=== PATIENT | male | born 1945 | race Caucasian/White ===

== ENCOUNTER → 2021-12-04 | Outpatient (CLI) | payer MEDICARE, OTHER ==
--- NOTE | 2021-12-05 09:07 | NM ---
EXAMINATION TYPE: NM DatScan Brain SPECT DATE OF EXAM: 12/04/2021 COMPARISON: NONE HISTORY: 75-year-old male R25.1, tremors. TECHNIQUE: 10 drops of Lugol's solution was administered 1 hour prior to injection as a thyroid bloc rhiannon agent. After the administration of 4.69 mCi I-123 Ioflupane DaTscan. Images obtained 3 hours p ost injection. SPECT images of the brain were acquired with axial and coronal reconstructions. FINDINGS: There is increased background uptake. Suggestion of minimal blunting of the posterior left striatal u ptake on axial SPECT images. However, this is not corroborated on IWLD Quant analysis. IMPRESSION: Increased background uptake which can be seen with balanced loss of striatal activity and may indicat e early changes of idiopathic Parkinson's disease or Parkinsonian syndrome. Consider follow-up exam.
== END | disposition home or self-care (01) ==
LOC: RADNMMAIN 10:39
PROVIDERS: ATTEND Psychiatry & Neurology Neurology
DX: R25.1 Tremor, unspecified (principal)
CPT/HCPCS: 78803; A9584